=== PATIENT | female | born 1960 | race Caucasian/White ===

== ENCOUNTER → 2019-11-22 | Emergency (ER) | payer SELFPAY ==
[~2019-11-22] VITALS: Ht 152.4 cm; Wt 76.7 kg
[~2019-11-22] MED LIST: KETOROLAC TROMETH 15 mg/ml 1ML VL IV ONE; LABETALOL HCL 5 MG/ML 4ML SYRINGE IV ONE; MORPHINE SULFATE 4 MG/ML SYR/VIAL IV ONE; ONDANSETRON HCL 4 MG/2 ML VIAL IV ONE; SODIUM CHLORIDE 0.9% 1,000 ML IV ONE; cloNIDine 0.2 mg/24hr 7DAY PATCH TD ONE; hydrALAZINE HCL 20 MG/ML VL IV ONE
[2019-11-22 07:19] LABS: Basophils # (auto) 0 10 ^3/uL (0-0.2); Basophils % (auto) 0.3 % (0.0-2.0); Eosinophils # (auto) 0.1 10 ^3/uL (0-0.8); Eosinophils % (auto) 1.1 % (0.0-7.0); Hemoglobin 15.9 g/dL (12.2-16.2); Lymphocytes # (auto) 1.5 10 ^3/uL (0.4-5.4); Lymphocytes % (auto) 15.2 % (10.0-50.0); Mean Corpuscular Hemoglobin 32.2 pg (28.0-32.0); Mean Corpuscular Volume 97.4 fL (80.0-100.0); Monocytes # (auto) 0.5 10 ^3/uL (0-1.3); Monocytes % (auto) 5.3 % (0.0-12.0); Neutrophils # (auto) 7.6 10 ^3/uL (1.6-8.6); Neutrophils % (auto) 78.1 % (37.0-80.0); Nucleated Red Blood Cells % 0.1 %; Platelet Count (auto) 310 10^3/uL (140-450); Red Blood Cells 4.93 10^6/uL (4.0-5.20); Red Cell Distribution Width 13.1 % (11.8-14.3); White Blood Cell 9.7 10^3/uL (4.4-10.8)
[2019-11-22 07:24] LABS: Albumin 3.6 g/dL (3.4-5.0); Calcium 8.9 mg/dL (8.5-10.1); Magnesium 2.2 mg/dL (1.6-2.6); Potassium 4.1 mmol/L (3.5-5.1)
[2019-11-22 07:27] LABS: BUN/Creatinine Ratio 17.1; Bilirubin, Total 0.4 mg/dL (0.2-1.0); Total Protein 7.8 g/dL (6.4-8.2)
[2019-11-22 10:53] VITALS: BP 148/96
== END | disposition home or self-care (01) ==
LOC: EDBD 05:29 → ER 05:29
DX: R51 Headache (principal); I10 Essential (primary) hypertension; M48.061 Spinal stenosis, lumbar region without neurogenic claudication; E11.9 Type 2 diabetes mellitus without complications; E03.9 Hypothyroidism, unspecified; F12.10 Cannabis abuse, uncomplicated
CPT/HCPCS: 36415; 71046; 72131; 72192; 73502; 80053; 83036; 83735; 84443; 85025; 96374; 96375; 99285; J0360; J1885; J2270; J2405; J7030; 93005